=== PATIENT | male | born 1990 | race Caucasian/White ===

== ENCOUNTER 2022-08-19 11:25 | Emergency (ER) | payer OTHER ==
[2022-08-19 11:31] VITALS: BP 124/76; PULSE 62; RESP 18; TEMP 98.1; BMI 22.9
[2022-08-19] MEDS ORDERED: IBUPROFEN 600 MG TABLET (FP) PO ONE ×2 (11:56)
== END 2022-08-19 12:45 | disposition home or self-care (01) ==
LOC: JERFT 11:25
PROC: 2W3DX1Z Immobilization of Left Lower Arm using Splint (ICD-10-PCS; principal; 2022-08-19)
DX: S62.112A Displaced fracture of triquetrum [cuneiform] bone, left wrist, initial encounter for closed fracture (principal); W10.8XXA Fall (on) (from) other stairs and steps, initial encounter
CPT/HCPCS: 73110-TC-LT-FY; 73130-TC-LT-FY; 99283-25

== ENCOUNTER 2022-11-25 00:40 | Emergency (ER) | payer OTHER ==
[2022-11-25 00:45] VITALS: BP 120/73; PULSE 69; RESP 18; TEMP 98.1; BMI 25.1
[2022-11-25] MEDS ORDERED: IBUPROFEN 600 MG TABLET (FP) PO ONE ×2 (01:44→01:45)
== END 2022-11-25 01:51 | disposition home or self-care (01) ==
LOC: JER 00:40
DX: M25.561 Pain in right knee (principal)
CPT/HCPCS: 73562-TC-RT-FY; 99283-25

== ENCOUNTER 2024-06-04 10:10 | Emergency (ER) | payer OTHER ==
[2024-06-04 10:26] VITALS: BP 115/72; PULSE 57; RESP 16; TEMP 98.3; BMI 23.6
[2024-06-04] MEDS ORDERED: LIDOCAINE 4% PATCH TP ONE (10:58)
[2024-06-04] MEDS ORDERED: ACETAMINOPHEN 500 MG TABLET (FP) ONE (10:59)
[2024-06-04] MEDS: ACETAMINOPHEN 500 MG TABLET (FP) PO ONE (11:03)
[2024-06-04] MEDS: LIDOCAINE 5% TOPICAL PATCH TP ONE (11:03)
[2024-06-04] MEDS: ACETAMINOPHEN 1000 MG/100 ML BAG IVPB ONE (11:03)
[2024-06-04] MEDS ORDERED: LIDOCAINE PATCH REMOVAL MC SCH (22:00)
== END 2024-06-04 12:08 | disposition home or self-care (01) ==
LOC: JERFT 10:10
DX: M25.561 Pain in right knee (principal)
CPT/HCPCS: 73564-TC-RT-FY; 99283-25